=== PATIENT | female | born 1970 | race Two or more races ===

== ENCOUNTER 2022-02-03 12:05 | Emergency (ER) | payer OTHER ==
[~2022-02-03] VITALS: Ht 167.6 cm; Wt 70.0 kg
[2022-02-03 12:07] VITALS: BP 148/88
[2022-02-03] MEDS ORDERED: FAMOTIDINE 20MG/2ML VIAL IV ONE (12:30)
[2022-02-03] MEDS ORDERED: SODIUM CHLORIDE 0.9% 1,000 ML IV ONE (12:30)
[2022-02-03] MEDS ORDERED: MECLIZINE 25MG TABLET PO ONE ×2 (12:30→14:00)
[2022-02-03 12:59] LABS: BASOPHILS % 0.4 % (0.0-2.0); EOSINOPHILS % 0.6 % (0.0-5.0); HEMATOCRIT. 42.8 % (36.0-48.0); HEMOGLOBIN. 13.9 g/dL (12.0-16.0); LYMPHOCYTES % 21.8 % (20.0-50.0); MEAN CORPUSCULAR HEMOGLOBIN 26.1 pg (28.0-32.0); MEAN CORPUSCULAR VOLUME 80.4 fL (81.0-99.0); MEAN PLATELET VOLUME 9.6 fl (7.4-10.4); MONOCYTES % 5.9 % (2.0-8.0); NEUTROPHILS % 71.3 % (40.0-76.0); PLATELET 174 x1000/uL (130-400); RED BLOOD CELL COUNT 5.32 mill/uL (4.2-5.4)
[2022-02-03] MEDS ORDERED: ONDANSETRON HCL 4MG/2ML INJ IV ONE (13:00)
[2022-02-03 13:07] LABS: HCG SCREEN NEGATIVE
[2022-02-03 13:10] LABS: CHLORIDE 104 mEq/L (98-107)
[2022-02-03] MEDS ORDERED: POTASSIUM CHLORIDE 20MEQ TABLET SR PO ONE (13:30)
[2022-02-03] MEDS ORDERED: MAGNESIUM 2 G PREMIX 50 ML IV ONE (13:30)
[2022-02-03] MEDS ORDERED: MECL-159 MT (15:26)
[2022-02-03] MEDS ORDERED: POTASSIUM CHLORIDE 20MEQ TABLET SR PO NR (15:30)
== END 2022-02-03 15:47 | disposition home or self-care (01) ==
LOC: ER 12:17
DX: R11.2 Nausea with vomiting, unspecified (principal); R42 Dizziness and giddiness; R73.03 Prediabetes
CPT/HCPCS: 36415; 80053; 83690; 83735; 84484; 84703; 85025; 93005; 96361; 96374; 96375; 99284; J2405; J3490; J7030; J8597